=== PATIENT | male | born 1970 | race Caucasian/White ===

== ENCOUNTER 2016-08-11 14:03 | Emergency (ER) | payer OTHER ==
[2016-08-11 14:09] VITALS: BMI 29.0
--- NOTE | 2016-08-11 16:20 | PDOC ---
History of Present Illness - General History Source: Patient - History of Present Illness Timing/Duration: reports: intermittent Abdominal Pain Onset Location: reports: RLQ Pain Radiation: reports: no radiation <Nette Pham - Last Filed: 08/11/16 18:50> <Kosta Singh - Last Filed: 08/14/16 19:21> - General Chief Complaint: Pain Stated Complaint: SIDE PAIN Time Seen by Provider: 08/11/16 15:58 Past History - Past Medical History Anemia: No Asthma: No Cancer: No Cardiac Disorders: No CVA: No COPD: No CHF: No Dementia: No Diabetes: Yes (niddm) GI Disorders: No Disorders: No HTN: Yes Hypercholesterolemia: Yes Liver Disease: No Seizures: No Thyroid Disease: No - Surgical History Abdominal Surgery: Yes (HERNIA) Appendectomy: No Cardiac Surgery: No Cholecystectomy: No GI Surgery: Yes (PARTIAL R KIDNEY REMOVED.) Lung Surgery: No Neurologic Surgery: No Orthopedic Surgery: Yes (eve knee arthroscopy, left acl repair) - Psycho/Social/Smoking Cessation Hx Anxiety: No Suicidal Ideation: No Smoking History: Former smoker Have you smoked in the past 12 months: Yes If you are a former smoker, when did you quit?: 5 MO Information on smoking cessation initiated: No Hx Alcohol Use: Yes (SOCIAL) Drug/Substance Use Hx: No Substance Use Type: None Hx Substance Use Treatment: No <Nette Pham Last Filed: 08/11/16 18:50> <Kosta Singh - Last Filed: 08/14/16 19:21> - Past Medical History Allergies/Adverse Reactions: Allergies Allergy/AdvReac Type Severity Reaction Status Date / Time No Known Drug Allergies Allergy Verified 08/11/16 14:09 Home Medications: Ambulatory Orders Lisinopril [Prinivil -] 2.5 mg PO DAILY #0 tablet 02/16/12 Simvastatin [Zocor -] 10 mg PO DAILY #0 tablet 02/16/12 Sitagliptin Phos/Metformin HCl [Janumet 50-1,000 mg Tablet] 1 each PO DAILY Review of Systems - Review of Systems Constitutional: No: Fever ABD/GI: No: Constipated, Diarrhea, Nausea, Vomiting : No: Dysuria, Hematuria <Nette Pham Last Filed: 08/11/16 18:50> *Physical Exam - Vital Signs Last Vital Signs Temp Pulse Resp BP Pulse Ox 98.0 F 101 H 20 137/84 98 08/11/16 14:06 08/11/16 14:06 08/11/16 14:06 08/11/16 14:06 08/11/16 14:06 - Physical Exam General Appearance: Yes: Appropriately Dressed. No: Apparent Distress HEENT: positive: Normal Voice Respiratory/Chest: negative: Respiratory Distress Gastrointestinal/Abdominal: positive: Soft. negative: Tender, Distended, Guarding, Rebound, Mass Musculoskeletal: negative: CVA Tenderness Integumentary: positive: Dry, Warm Neurologic: positive: Fully Oriented, Alert, Normal Mood/Affect <Nette Pham - Last Filed: 08/11/16 18:50> - Vital Signs Last Vital Signs Temp Pulse Resp BP Pulse Ox 98.1 F 89 18 135/79 99 08/11/16 19:17 08/11/16 19:17 08/11/16 19:17 08/11/16 19:17 08/11/16 19:17 <Kosta Singh - Last Filed: 08/14/16 19:21> ED Treatment Course - LABORATORY CBC & Chemistry Diagram: 08/11/16 16:20 08/11/16 16:20 - RADIOLOGY Radiology Studies Ordered: Category Date Time Status ABDOMEN & PELVIS CT WITH CONTR [CT] Stat CT Scan 08/11/16 16:15 Ordered <Nette Pham - Last Filed: 08/11/16 18:50> - LABORATORY CBC & Chemistry Diagram: 08/11/16 16:20 08/11/16 16:20 - ADDITIONAL ORDERS Additional order review: 08/11/16 16:20 RBC 4.67 D MCV 86.5 MCHC 33.9 RDW 13.9 MPV 8.3 Neutrophils % 59.1 Lymphocytes % 29.8 D Monocytes % 7.3 D Eosinophils % 3.0 D Basophils % 0.8 <Kosta Singh - Last Filed: 08/14/16 19:21> Medical Decision Making - Medical Decision Making 08/11/16 16:15 46-year-old male, history of [id number] diabetes, s/p resection of R kidney polyp remotely, here with right lower quadrant pain. Patient reports a burning pain to right lower quadrant that started yesterday, resolved with over- the-counter medication and returned this afternoon, was 8/10 at its maximum intensity but pain free in ED. No history of similar symptoms. Denies nausea, vomiting, fever, chills, change in bowel movements, dysuria, testicular pain, swelling or penile discharge. See exam R/o appy -pain control -labs -CT 08/11/16 18:51 CT neg for acute pathology. Pt has remained pain free in ED and stable for discharge w/ PMD f/u as needed <Nette Pham - Last Filed: 08/11/16 18:50> - Medical Decision Making 08/14/16 19:20 The patient was seen and evaluated in conjunction with ERIS Pham under my direct supervision, ancillary studies were reviewed. I agree with the plan as outlined by EIRS Pham . <Kosta Singh - Last Filed: 08/14/16 19:21> *DC/Admit/Observation/Transfer <Nette Pham - Last Filed: 08/11/16 18:50> <Kosta Singh - Last Filed: 08/14/16 19:21> Diagnosis at time of Disposition: Abdominal pain Qualifiers: Abdominal location: right lower quadrant Qualified Code(s): R10.31 - Right lower quadrant pain - Discharge Dispostion Disposition: HOME Condition at time of disposition: Good - Referrals Referrals: Elizabeth Warren MD [Primary Care Provider] - - Patient Instructions Additional Instructions: The source of your abdominal pain is unclear at this time as your labs and CAT scans were all normal. Pain is possibly muscular in etiology. Please follow- up with your PMD - Post Discharge Activity Work/School Note: Back to Work
[2016-08-11 16:51] LABS: BASOPHIL 0.8 % (0-2.0); MCH 29.4 pg (25.7-33.7); MCHC 33.9 g/dl (32.0-35.9); MEAN CELL VOLUME 86.5 fl (80-96); MEAN PLT VOLUME 8.3 fl (7.5-11.1); NEUTROPHILS 59.1 % (42.8-82.8); PLATELET COUNT 313 K/MM3 (134-434); RDW 13.9 % (11.9-15.9); WHITE BLOOD COUNT 10.1 K/mm3 (4.0-10.0)
[2016-08-11 17:20] LABS: ALBUMIN 4.3 g/dl (3.4-5.0); ANION GAP 10 (8-16); BILIRUBIN,TOTAL 0.5 mg/dL (0.2-1.0); CALCIUM 9.7 mg/dL (8.5-10.1); CO2 31 mmol/L (21-32); COCKROFT - GAULT 99.59; CREATININE 1.1 mg/dL (0.7-1.3); GLUCOSE,RANDOM 109 mg/dL (74-106); SGOT/AST 20 U/L (15-37); SGPT/ALT 40 U/L (12-78); TOT PROT 7.7 g/dl (6.4-8.2)
[2016-08-11 17:21] LABS: ALK PHOS 65 U/L (45-117)
[2016-08-11 17:42] LABS: URINE APPEARANCE CLEAR; URINE BILIRUBIN NEGATIVE (NEGATIVE); URINE BLOOD NEGATIVE (NEGATIVE); URINE COLOR LTYELLOW; URINE GLUCOSE (UA) NEGATIVE (NEGATIVE); URINE KETONE NEGATIVE (NEGATIVE); URINE LEUK ESTERASE NEGATIVE (NEGATIVE); URINE NITRITE NEGATIVE (NEGATIVE); URINE PROTEIN NEGATIVE (NEGATIVE); URINE UROBILINOGEN NEGATIVE E.U./dl (0.2-1.0)
[2016-08-11 19:18] VITALS: BP 135/79; PULSE 89; TEMP 98.1
== END 2016-08-11 19:18 | disposition home or self-care (01) ==
LOC: JER 14:03
DX: R10.31 Right lower quadrant pain (principal); Z90.5 Acquired absence of kidney; Z87.891 Personal history of nicotine dependence
CPT/HCPCS: 36415; 74177-TC; 80053; 81003; 85025; 99283-25; Q9967